=== PATIENT | male | born 1985 | race Caucasian/White ===

== ENCOUNTER 2017-05-31 22:46 | Emergency (ER) | payer OTHER ==
[~2017-05-31] VITALS: Ht 177.8 cm; Wt 71.4 kg
[~2017-05-31 22:46] MED LIST: AMOX875T PO; MAGIC1 PO; PRED10TA PO
[2017-05-31 22:47] VITALS: TEMP 36.7; Ht 177.8 cm; Wt 71.4 kg
[2017-05-31] MEDS ORDERED: LEVO-371 PO (22:55)
[2017-05-31] MEDS ORDERED: MONT1TAB5 PO (22:55)
[2017-05-31] MEDS ORDERED: XYLOCAINE 1%/SOD BICARB 20 ML VIAL INFIL ONE (23:00)
[2017-05-31] MEDS ORDERED: DIPHTHERIA/TETANUS/PERTUSSIS 0.5 ML SYR/VIAL IM. ONE (23:00)
--- NOTE | 2017-05-31 23:30 | EMERGENCY ROOM VISIT NOTE ---
ED Visit Note First contact with patient: 22:50 CHIEF COMPLAINT: Finger laceration HISTORY OF PRESENT ILLNESS: This 31-year-old male patient presents to the emergency department ambulatory after cutting the left fourth finger while using a circular saw tonight. The bleeding has stopped. Denies weakness or numbness of the finger. The patient has full range of motion of the fingers. The patient rates the pain as sharp and 5/10. The patient denies any other injuries. The patient's tetanus shot is up to date. REVIEW OF SYSTEMS: A 6 system review of systems was completed with positives and pertinent negatives listed in the HPI. ALLERGIES: No known drug allergies MEDICATIONS: See med list PMH: Seasonal Allergies SOCIAL HISTORY: The patient lives locally with family. Nonsmoker. PHYSICAL EXAM: Vital Signs: Reviewed Nurse's notes, vital signs stable. GENERAL : This is a 31-year-old male, in no acute distress, well developed, well nourished. SKIN: There is a 1 cm long laceration on the palmar aspect of the left fourth finger. The edges gape apart with traction. There is no foreign material in the wound and it looks clean. There is no active bleeding. No deep structures such as tendons, bones, or significant blood vessels are seen in the base of the wound. Extension and flexion of the finger is full and strong. Full range of motion of the wrist and other fingers. Capillary refill less than 2 seconds. Normal sensation to light and sharp touch. RADIOGRAPHIC FINDINGS: FINGER X-RAY: No fractures. No foreign bodies. EMERGENCY DEPARTMENT COURSE: I examined the patient. X-ray of the finger was obtained and reviewed by myself and does not contain any fractures or foreign bodies. Verbal consent was obtained to perform the procedure. Using sterile technique the wound was cleansed with Betadine. 1 ml of 1% buffered lidocaine was injected into the laceration for local anesthesia. The area was sterilely draped. Once the patient was anesthetized, the wound was copiously irrigated under pressure with sterile saline. The wound was explored and there were no deep structures injured. The laceration was repaired using 3 simple interrupted 5-0 nylon sutures. The patient tolerated the procedure well. Hemostasis was achieved. The area was cleaned with sterile saline and dressed with bacitracin ointment and bandage. The patient was given a tetanus booster. The patient was discharged home in good condition. DIAGNOSIS: Finger laceration Problem List Medical Problems: (1) No Known Active Medical Problems Status: Chronic Current/Historical Medications Scheduled Levocetirizine Dihydrochloride (Xyzal), 1 TAB PO HS Montelukast Sodium (Montelukast Sodium), 1 TAB PO DAILY Allergies Coded Allergies: No Known Allergies (Unverified , 05/31/17) Vital Signs Date Time Temp Pulse Resp B/P (MAP) Pulse Ox O2 Delivery O2 Flow Rate FiO2 05/31/17 22:47 36.7 68 18 120/75 96 Room Air Medications Administered Medications (Trade) Dose Ordered Sig/Neel Route Start Time Stop Time Status Last Admin Dose Admin Diphtheria/ Pertussis/Tetanus Vacc (Adacel Inj) 0.5 ml ONCE ONCE IM. 05/31/17 23:00 05/31/17 23:01 DC 05/31/17 23:12 0.5 ML Departure Information Impression Primary Impression: Finger laceration Dispostion Home / Self-Care Condition GOOD Referrals Alix Gibson D.O. (PCP) Patient Instructions My [facility] Additional Instructions You have received 3 sutures on your finger. These sutures are NOT dissolvable and WILL need to be removed by a health care provider in 10-12 days. You can return to the Emergency Department or contact your Primary Care Provider to have the sutures removed. Proper wound care is essential for adequate wound healing and infection prevention. You can shower and clean the wound with soap and water. Do not scour over the wound, pat dry with a towel. Do not submerse the wound (i.e. bathe or dish wash) until the sutures have been removed. You can use an antibiotic ointment with a dressing over the wound for the next 3-4 days. After this time you may leave the wound dry and open to the air. If crust develops over the wound you can use a Q-tip to apply a 1:1 peroxide:water solution to clean the wound. Look for signs of infection of the wound including: increased pain, swelling, foul discharge, streaking, or increased temperature. If any of these are noticed you should return to the Emergency Department for further assessment and treatment. As with any laceration you may have received nerve damage to the surrounding tissues. This damage may or may not be permanent. You should keep the area covered with sunscreen for the first 6 months to 1 year when at risk for exposure to help minimize scarring. You can also use scar reducing creams or Vitamin E oil to help minimize scarring. For pain control, you can use the following [id number] medicines (if >12 yo): - Regular strength (325mg/tab) Tylenol (acetaminophen) 2 tabs every 4-6 hours as needed. Do not exceed 12 tablets in a 24 hour period. Avoid taking more than 4 grams (4000 mg) of Tylenol per day. This includes any other sources of acetaminophen you may take on a regular basis. - Regular strength (200 mg/tab) Advil (ibuprofen) 1-2 tabs every 4-6 hours as needed. Do not exceed a dose of 3200 mg per day. Return to the emergency department if your symptoms worsen despite treatment course outlined above. Problem Qualifiers Primary Impression: Finger laceration Encounter type: initial encounter Finger: ring finger Damage to nail status : without damage Foreign body presence: without foreign body Laterality: left Qualified Codes: S61.215A - Laceration without foreign body of left ring finger without damage to nail, initial encounter
[2017-05-31 23:50] VITALS: BP 122/69; PULSE 54; O2SAT 98
--- NOTE | 2017-06-01 06:15 | DIAGNOSTIC IMAGING REPORT ---
LEFT FOURTH FINGER 3 VIEWS CLINICAL HISTORY: Left fourth finger pain status post trauma COMPARISON: None. DISCUSSION: No acute fractures or dislocations are visualized. No radiopaque foreign bodies are visualized. There is a small soft tissue laceration located distally. IMPRESSION: Small soft tissue laceration. No fractures, dislocations, or foreign bodies identified. Electronically signed by: Miller Moise M.D. 06/01/2017 6:14 AM Dictated Date/Time: 06/01/2017 6:13 AM
== END 2017-05-31 23:50 | disposition home or self-care (01) ==
LOC: C.EDB 22:46
DX: S61.215A Laceration without foreign body of left ring finger without damage to nail, initial encounter (principal); W31.2XXA Contact with powered woodworking and forming machines, initial encounter; Z79.899 Other long term (current) drug therapy; Z23 Encounter for immunization